=== PATIENT | male | born 1955 | race Caucasian/White ===

== ENCOUNTER 2019-04-03 12:15 | Emergency (ER) | payer MEDICAID ==
[2019-04-03] MEDS: HYDROCODONE/APAP (5/325) TAB PO (14:31)
[2019-04-03] MEDS: KETOROLAC 30 MG INJ IM (14:31)
== END 2019-04-03 14:59 | disposition home or self-care (01) ==
LOC: FTE 12:15
DX: M79.601 Pain in right arm (principal)
CPT/HCPCS: 96372; 99284-25